=== PATIENT | female | born 1970 | race Caucasian/White ===

== ENCOUNTER → 2024-08-02 | Outpatient (CLI) | payer OTHER ==
--- NOTE | 2024-08-02 14:50 | MR ---
MRI CERVICAL SPINE: CLINICAL HISTORY: Headaches, neck pain, left upper extremity radiculopathy. Headaches, neck pain, lef t upper extremity radiculopathy. TECHNIQUE: Multiplanar, multisequence imaging of the cervical spine is performed without IV contrast. COMPARISON: None. FINDINGS: Sagittal images of the cervical spine show the craniocervical junction to appear within nor mal limits. The cervical and upper thoracic spinal cord is normal in course, caliber, and signal. V ertebral alignment is straightened. The vertebral body and intravertebral disk heights are normal. The bone marrow signal intensity is within normal limits. Axial images show C2-C3 through C4-C5 levels to appear within normal limits. Axial images at C5-C6 level show broad-based central disc protrusion minimally effacing anterior thec al sac. Patent bilateral neural foramina. Axial images at C6-C7 level show posterior broad-based disc protrusion effacing the anterior thecal s ac and causing mild left-sided neural foraminal narrowing. Axial images at C7-T1 level appear within normal limits. IMPRESSION: Mild degenerative changes in the mid to lower cervical spine as detailed above. [facility], , 08/02/2024 2:48 PM
== END | disposition home or self-care (01) ==
LOC: RADMRIMAIN 13:52
PROVIDERS: ATTEND Physical Medicine & Rehabilitation
DX: M50.13 Cervical disc disorder with radiculopathy, cervicothoracic region (principal); M47.22 Other spondylosis with radiculopathy, cervical region; M99.71 Connective tissue and disc stenosis of intervertebral foramina of cervical region
CPT/HCPCS: 72141

== ENCOUNTER → 2024-09-10 | Outpatient (CLI) | payer OTHER ==
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
== END | disposition home or self-care (01) ==
LOC: RADMRIMAIN 20:40
PROVIDERS: ATTEND Physical Medicine & Rehabilitation
DX: S46.012A Strain of muscle(s) and tendon(s) of the rotator cuff of left shoulder, initial encounter (principal); M19.012 Primary osteoarthritis, left shoulder; V89.2XXA Person injured in unspecified motor-vehicle accident, traffic, initial encounter; M25.412 Effusion, left shoulder